=== PATIENT | male | born 1945 | race Caucasian/White ===

== ENCOUNTER 2016-05-28 07:08 | Outpatient (CLI) | payer MEDICARE ==
[2016-05-28 07:28] LABS: MEAN CORPUSCULAR HEMOGLOBIN 33.3 pg (28.0-34.0); MEAN CORPUSCULAR VOLUME 108.6 fl (80.0-100.0)
[2016-05-28 08:05] LABS: eGFR (African) > 60; eGFR (Non-African) > 60
== END 2016-05-28 07:10 ==
LOC: LAB 07:08
PROVIDERS: ATTEND Internal Medicine Cardiovascular Disease
DX: Z12.5 Encounter for screening for malignant neoplasm of prostate (principal); R79.9 Abnormal finding of blood chemistry, unspecified; I25.10 Atherosclerotic heart disease of native coronary artery without angina pectoris; E78.4 Other hyperlipidemia
CPT/HCPCS: 36415; 80053; 80061; 83036; 84153; 84443; 85027

== ENCOUNTER 2017-06-05 06:37 | Outpatient (CLI) | payer MEDICARE ==
[2017-06-05 07:52] LABS: BASOPHILS % 0.5 (0.0-1.5)
[2017-06-05 08:00] LABS: eGFR (Non-African) > 60
[2017-06-05 09:16] LABS: MEAN CORPUSCULAR HEMOGLOBIN 33.2 pg (28.0-34.0); MEAN CORPUSCULAR VOLUME 106.3 fl (80.0-100.0)
[2017-06-05 09:17] LABS: EOSINOPHILS % 1.1 % (0.0-6.8); MONOCYTES % 4.6 % (0.0-11.0); NEUTROPHILS # 4.4 # k/uL (1.4-7.7)
== END 2017-06-05 06:40 ==
LOC: LAB 06:37
PROVIDERS: ATTEND Internal Medicine Cardiovascular Disease
DX: I25.10 Atherosclerotic heart disease of native coronary artery without angina pectoris (principal); Z12.5 Encounter for screening for malignant neoplasm of prostate; M10.9 Gout, unspecified
CPT/HCPCS: 36415; 80053; 80061; 83036; 84153; 84443; 85025

== ENCOUNTER 2018-05-28 08:12 | Outpatient (CLI) | payer MEDICARE, OTHER ==
[2018-05-28 08:59] LABS: MEAN CORPUSCULAR HEMOGLOBIN 33.4 pg (28.0-34.0)
[2018-05-28 12:18] LABS: eGFR (Non-African) 9
== END 2018-05-28 08:14 ==
LOC: LAB 08:12
PROVIDERS: ATTEND Internal Medicine Cardiovascular Disease
DX: I25.10 Atherosclerotic heart disease of native coronary artery without angina pectoris (principal); E78.49 Other hyperlipidemia; R79.9 Abnormal finding of blood chemistry, unspecified; Z12.5 Encounter for screening for malignant neoplasm of prostate
CPT/HCPCS: 36415; 80053; 80061; 83036; 84153; 84443; 85027